=== PATIENT | male | born 1965 | race Caucasian/White ===

== ENCOUNTER 2024-08-28 14:36 | Emergency (ER) | payer BC, SELFPAY ==
[2024-08-28 14:53] VITALS: BP 147/89
--- NOTE | 2024-08-28 15:41 | ED.GENMED ---
History of Present Illness
General
Chief Complaint: Allergic Reaction
Source: patient
Exam Limitations: none
Time Seen by Provider: 08/28/24 15:08
Nursing documentation reviewed up to this point in time: agreed with
History of Present Illness
History of Present Illness:
59 yo male with hx GERD, HLD, presents stating He was using the Mupirocin for past 2 weeks for a groin rash. States that rash was 70% improved so stopped using it in that area.
Today 8:30 a.m. he put Mupirocin ointment on his chest after shaving it. At 1:30 he had a sneezing spell and by 2 p.m. face was red, eyes swollen, throat felt like it was closing, entire upper body became very red with rash on entire trunk, arms and
popliteal areas of legs. He took a Zyrtec and by arrival here, throat feels better but still with significant redness and rash.
Denies trouble breathing, has mild pain across upper chest. Denies n/v.
Past History
Past History
ED Past Medical History: Hypercholesterolemia and Other (pud)
ED Past Surgical History: Other (Carcinoid tumor removal)
Social History
Tobacco: Non-smoker
Alcohol: Occasional
Drug: None
Personal:
Living: with family
Review of Systems
Review of Systems
Allergies reviewed?: Yes
All Other Systems: ROS reviewed and negative except as documented in HPI and ROS
Constitutional: Denies fever
EENT: Denies sore throat
Respiratory: Denies cough or trouble breathing
Cardiac: Reports chest pain; Denies diaphoresis, palpitations or syncope
ABD/GI: Denies abdominal pain, nausea, vomiting or diarrhea
Musculoskeletal: Reports no symptoms
Skin: Reports rash
Neurological: Reports no symptoms
Phy Exam
Physical Exam
Physical Exam:
GENERAL: No acute distress. A&Ox3.
CONSTITUTIONAL: Afebrile.
EYES: clear, conjunctivae normal
ENMT: moist mucus membranes, Pharynx nl
RESPIRATORY: Regular respirations, nonlabored, lungs clear.
CARDIOVASCULAR: Regular rate and rhythm, no murmurs, no rubs.
GI: Soft, nontender, normal BS
MUSCULOSKELETAL: Moves with ease. Well perfused.
SKIN: Warm, dry, face and trunk are bright red with smooth rash, lower abdomen with some normal color skin, rash in groin area, mild rash bilateral popliteal areas.,
PSYCH: Normal mood and affect. Well kept, interactive and appropriate
NEUROLOGIC: Awake, alert and oriented. No focal neurological deficits
Course
Orders/Labs/Results
Orders:
Orders
08/28/24 15:37
Dexamethasone Sod Phosphate [Decadron] 10 mg IV NOW STA
EPINEPHrine PF [Adrenalin] 0.3 mg IM NOW STA
Famotidine [Pepcid] 20 mg IV NOW STA
08/28/24 15:39
Diphenhydramine [Benadryl] 50 mg IV NOW STA
08/28/24 15:40
0.9% Sodium Chloride 1000 ml [Nss] 1,000 ml IV BOLUS
08/28/24 16:32
Electrocardiogram (*1) Urgent
Reason for Study: Chest Pain
EKG- Treatment ONCE
Vital Signs
Initial and Last Documented VS:
Initial Vital Signs
Temp Pulse Resp BP Pulse Ox
98.7 F 98 16 147/89 99
08/28/24 14:53 08/28/24 14:53 08/28/24 14:53 08/28/24 14:53 08/28/24 14:53
Last Documented Vital Signs
Temp Pulse Resp BP Pulse Ox
98.7 F 88 16 141/92 100
08/28/24 14:53 08/28/24 16:00 08/28/24 16:00 08/28/24 16:00 08/28/24 16:00
MDM/Problems Addressed
Differential Diagnosis Includes:
allergic reaction,
MDM/Problems Addressed:
59 yo male with hx GERD, HLD, presents stating He was using the Mupirocin for past 2 weeks for a groin rash. States that rash was 70% improved so stopped using it in that area.
Today 8:30 a.m. he put Mupirocin ointment on his chest after shaving it. Otherwise, he has no known exposuresAt 1:30 he had a sneezing spell and by 2 p.m. face was red, eyes swollen, throat felt like it was closing, entire upper body became very red
with rash on entire trunk, arms and popliteal areas of legs. He took a Zyrtec and by arrival here, throat feels better but still with significant redness and rash.
Denies trouble breathing, has mild pain across upper chest. Denies n/v.
Afebrile, NAD
EKG NSR
4:45 p.m
Pt looks 90% better, rash almost gone.
Rx for steroid sent to his pharmacy
Stop Mupirocin
Stable for discharge
*Critical Care Note
Total Time (30-74mins, 75-104mins- exclusive of procedures): Not Applicable
ED Attending Note
-
Portions of this chart may have been created with voice recognition software.� Occasional wrong word or��sound alike� substitutions may have occurred due to the inherent limitations of voice recognition software.
Discharge Plan
Departure
Patient Disposition: Home (Routine Discharge)
Date of Disposition: 08/28/24
Time of Disposition: 17:00
Patient with high blood pressure during this ER visit?: No
Condition: Good
Discharge Problem:
Allergic reaction
Instructions: Allergic reaction - ED discharge instructions
Prescriptions:
New
prednisone 20 mg tablet
40 mg PO DAILY Qty: 8 0RF
epinephrine [EpiPen 2-Damion] 0.3 mg/0.3 mL auto-injector
0.3 mg IM Q5-15M PRN (Reason: hypersensitivity reaction) Qty: 2 0RF
No Action
Esomeprazole Magnesium
1 tab PO DAILY
Pepcid
1 tab PO DAILY
fluticasone propionate 1 SPRAY spray,suspension
1 spray intranasal DAILY Qty: 1 0RF
Rx Instructions:
1 spray each nostril qd
Referrals:
Ashlyn Krishnan MD [Consulting Staff, [facility]] - As needed
Activity Restrictions/Additional Instructions:
As we discussed, not sure why you had this reaction.
I would not use mupirocin anymore
I sent prescriptions to your pharmacy for Prednisone to start tomorrow and for EpiPen to inject into your thigh if you ever have a similar reaction.
I have provided you the contact information for an Allergy doctor to follow up with if needed.
Interventions
Interventions:
*Risk Screen - Suicide Last Done: 08/28/24 14:53
*General Assessment Last Done: 08/28/24 14:53
*Neglect/Abuse Screening Last Done: 08/28/24 14:53
*ED- Fall Risk Assessment Last Done: 08/28/24 16:00
*ED COVID-19 Vaccine History Last Done: 08/28/24 16:00
ED- Cardiac Assessment Last Done: 08/28/24 15:50
ED- Pulmonary Assessment Last Done: 08/28/24 15:50
ED-Skin Assessment Last Done: 08/28/24 15:50
Discharge Date and Time
Print Language: [place]
[2024-08-28 15:51] VITALS: BP 131/62
[2024-08-28] MEDS: ADRENALIN 0.3 MG IM (15:52)
[2024-08-28] MEDS: DECADRON 10 MG IV (15:55)
[2024-08-28] MEDS: BENADRYL 50 MG IV (15:56)
[2024-08-28] MEDS: PEPCID 20 MG IV (15:56)
[2024-08-28] MEDS: NSS 1000 IV (15:57)
[2024-08-28 16:00] VITALS: BP 141/92
[2024-08-28 16:01] VITALS: BMI 27.2
[2024-08-28 17:00] VITALS: BP 150/83
== END 2024-08-28 18:04 | disposition home or self-care (01) ==
LOC: EMR 14:36
PROVIDERS: EMERGENCY PHYSICIAN Student in an Organized Health Care Education/Training Program; FAMILY PHYSICIAN Podiatrist Foot & Ankle Surgery
DX: T78.40XA Allergy, unspecified, initial encounter (principal); Y92.9 Unspecified place or not applicable; K21.9 Gastro-esophageal reflux disease without esophagitis; E78.00 Pure hypercholesterolemia, unspecified; Z87.11 Personal history of peptic ulcer disease
CPT/HCPCS: 99283; 96374; 96375; 96372; 96361; 93005